=== PATIENT | female | born 1940 | race Caucasian/White ===

== ENCOUNTER 2017-05-21 15:42 | Emergency (ER) | payer MEDICARE ==
[2017-05-21 16:11] VITALS: O2SAT 100
[2017-05-21] MEDS ORDERED: Sodium Chloride 0.9% 1000 ML 1,000 ML ONE (16:38)
[2017-05-21] MEDS ORDERED: Sodium Chloride 0.9% 1000 ML 1,000 ML IV SCH (16:45)
--- NOTE | 2017-05-21 16:58 | ERPHSYRPT ---
- History of Present Illness Time Seen by Provider: 05/21/17 16:20 Source: patient Exam Limitations: clinical condition Patient Subjective Stated Complaint: pt reports black and yellow stool beginning francois 4 days ago-denies pain-denies vomiting-denies obvious blood Triage Nursing Assessment: pt alert and oriented-abd soft and nontender to palp- resp nonlabored Physician History: PATIENT WITH A HISTORY OF LIVER TRANSPLANT 2004, RENAL INSUFFIENCY, AND ANEMIA, HAS BEEN TREATED FOR A URINARY TRACT INFECTION ON 3RD ANTIBIOTIC, LEVAQUIN, KEFLEX AND RECENTLY PLACED ON XIFACIN 550MG TWICE DAILY. PATIENT COMPLAINS OF BLACK DIARRHEA STOOL FOR PAST WEEK. DENIES ABDOMINAL PAIN, FEVER OR URINARY SYMPTOMS. Timing/Duration: week(s) Severity: mild Modifying Factors: Improves With: nothing Associated Symptoms: other (BLACK DIARRHEA STOOL) Allergies/Adverse Reactions: ramipril [From AltDexetra] Allergy (Mild, Verified 05/21/17 16:15) Home Medications: Allopurinol [Allopurinol] 100 mg PO DAILY 05/21/17 [History] Amlodipine Besylate [Amlodipine Besylate] 10 mg PO DAILY 05/21/17 [History] Calcitriol 0.5 mcg PO DAILY 05/21/17 [History] Lactobacillus Acidophilus [Acidophilus TABLET] 1 tab PO DAILY 05/21/17 [ History] Levothyroxine Sodium [Synthroid] 175 mcg PO DAILY 05/21/17 [History] Lipase/Protease/Amylase [Pancrelipase 5,000 Dr Capsule] 1 each PO TID 05/21/17 [ History] Lisinopril 20 mg [Zestril 20 MG] 20 mg PO DAILY 05/21/17 [History] Metolazone 2.5 mg [Zaroxolyn 2.5 MG] 2.5 mg PO DAILY 05/21/17 [History] Primidone 50 MG [Mysoline 50Mg] 50 mg PO DAILY 05/21/17 [History] Rifaximin [Xifaxan] 550 mg PO DAILY 05/21/17 [History] Sertraline HCl [Zoloft] 100 mg PO DAILY 05/21/17 [History] Sodium Bicarbonate 650 mg PO DAILY 05/21/17 [History] Tacrolimus [Tacrolimus] 1 mg PO BID 05/21/17 [History] Hx Tetanus, Diphtheria Vaccination/Date Given: No Hx Influenza Vaccination/Date Given: Yes Hx Pneumococcal Vaccination/Date Given: No Immunizations Up to Date: Yes - Review of Systems Constitutional: No Fever, No Chills Eyes: No Symptoms Ears, Nose, & Throat: No Symptoms Respiratory: No Cough, No Dyspnea Cardiac: No Chest Pain, No Edema, No Syncope Abdominal/Gastrointestinal: Diarrhea, No Abdominal Pain, No Nausea, No Vomiting Genitourinary Symptoms: No Symptoms, No Dysuria Musculoskeletal: No Symptoms, No Back Pain, No Neck Pain Skin: No Rash Neurological: No Dizziness, No Focal Weakness, No Sensory Changes Psychological: No Symptoms Endocrine: No Symptoms All Other Systems: Reviewed and Negative - Past Medical History Pertinent Past Medical History: Yes Cardiac History: Hypertension Endocrine Medical History: Diabetes Type II, Hypothyroidism Other Medical History: tremors - Past Surgical History Past Surgical History: Yes Gastrointestinal: Liver Transplant - Social History Smoking Status: Never smoker Exposure to second hand smoke: No Drug Use: none Patient Lives Alone: No - Female History Hx Now: No - Nursing Vital Signs Nursing Vital Signs: Initial Vital Signs Temperature 98.1 F 05/21/17 16:05 Pulse Rate 63 05/21/17 16:05 Respiratory Rate 18 05/21/17 16:05 Blood Pressure 171/74 05/21/17 16:05 O2 Sat by Pulse Oximetry 100 05/21/17 16:05 Pain Scale Pain Intensity 0 - Physical Exam General Appearance: no apparent distress, alert Eye Exam: PERRL/EOMI, eyes nml inspection Ears, Nose, Throat Exam: normal ENT inspection, TMs normal, pharynx normal, moist mucous membranes Neck Exam: normal inspection, non-tender, supple, full range of motion Respiratory Exam: normal breath sounds, lungs clear, No respiratory distress Cardiovascular Exam: regular rate/rhythm, normal heart sounds, normal peripheral pulses Gastrointestinal/Abdomen Exam: soft, normal bowel sounds, other (NONTENDER), No tenderness, No mass Rectal Exam: normal exam (NO BLOOD NOTED), hemorrhoids Back Exam: normal inspection, normal range of motion, No CVA tenderness, No vertebral tenderness Extremity Exam: normal inspection, normal range of motion, pelvis stable Neurologic Exam: alert, oriented x 3, cooperative, normal mood/affect, nml cerebellar function, nml station & gait, sensation nml, No motor deficits Skin Exam: normal color, warm, dry, No rash Lymphatic Exam: No adenopathy SpO2 Interpretation: normal SpO2: 100 Oxygen Delivery: Room Air Ordered Tests: Active Orders 24 hr Category Date Time Status IV Insertion STAT Care 05/21/17 16:34 Active CBC W DIFF Stat Lab 05/21/17 16:55 Completed CMP Stat Lab 05/21/17 16:55 Completed Occult Blood,Stool Other Stat Lab 05/21/17 16:55 Completed UA W/ MICROSCOPIC Stat Lab 05/21/17 18:05 Completed Medication Summary Generic Name Dose Route Start Last Admin Trade Name Jimboq PRN Reason Stop Dose Admin Sodium Chloride 1,000 mls @ 50 mls/hr 05/21/17 16:45 05/21/17 16:41 Sodium Chloride 0.9% 1000 Ml IV 06/20/17 16:44 50 mls/hr .Q20H CHIP Administration Lab/Rad Data: Laboratory Result Diagrams 05/21/17 16:55 05/21/17 16:55 Laboratory Results 05/21/17 05/21/17 05/21/17 Range/Units 18:05 16:55 16:55 WBC (4.0-10.5) K/mm3 RBC (4.1-5.4) M/mm3 Hgb (12.0-16.0) gm/dl Hct (35-47) % MCV (78-100) fl MCH (26-32) pg MCHC (32-36) g/dl RDW (11.5-14.0) % Plt Count (150-450) K/mm3 MPV (6-9.5) fl Gran % (36.0-66.0) % Lymphocytes % (24.0-44.0) % Monocytes % (0.0-12.0) % Eosinophils % (0.00-5.0) % Basophils % (0.0-0.4) % Basophils # (0-0.4) Sodium 144 (136-145) mEq/L Potassium 5.0 (3.5-5.1) mEq/L Chloride 110 H (98-107) mEq/L Carbon Dioxide 20.5 L (21-32) mEq/L Anion Gap 18.5 H (5-15) MEQ/L BUN 69 H (9-20) mg/dL Creatinine 3.91 H (0.55-1.30) mg/dl Estimated GFR 12 ML/MIN Glucose 143 H (70-110) MG/DL Calcium 8.7 (8.5-10.1) mg/dL Total Bilirubin 0.40 (0.2-1.0) mg/dL AST 20 (15-37) U/L ALT 23 (12-78) U/L Alkaline Phosphatase 100 (46-116) U/L Serum Total Protein 7.0 (6.4-8.2) gm/dL Albumin 3.4 (3.4-5.0) g/dL Ur Collection Type CCMS Urine Color YELLOW (YELLOW) Urine Appearance CLEAR (CLEAR) Urine pH 5.0 (5-6) Ur Specific [place] 1.010 (1.005-1.025) Urine Protein NEGATIVE (Negative) Urine Ketones NEGATIVE (NEGATIVE) Urine Blood NEGATIVE (0-5) Dg/ul Urine Nitrite NEGATIVE (NEGATIVE) Urine Bilirubin NEGATIVE (NEGATIVE) Urine Urobilinogen NORMAL (0-1) mg/dL Ur Leukocyte Esterase TRACE (NEGATIVE) Urine Microscopic WBC 2-5 (0-5) /HPF Ur Epithelial Cells FEW (FEW) /HPF Urine Bacteria RARE (NEGATIVE) /HPF Urine Culture Reflexed NO (NO) Urine Glucose NEGATIVE (NEGATIVE) mg/dL Stool Occult Blood NEGATIVE (Negative) Specimen Received 05-21-17 1850 05/21/17 Range/Units 16:55 WBC 5.3 (4.0-10.5) K/mm3 RBC 2.85 L (4.1-5.4) M/mm3 Hgb 9.1 L (12.0-16.0) gm/dl Hct 28.9 L (35-47) % MCV 101.4 H (78-100) fl MCH 31.9 (26-32) pg MCHC 31.5 L (32-36) g/dl RDW 14.9 H (11.5-14.0) % Plt Count 174 (150-450) K/mm3 MPV 9.4 (6-9.5) fl Gran % 59.9 (36.0-66.0) % Lymphocytes % 24.8 (24.0-44.0) % Monocytes % 10.7 (0.0-12.0) % Eosinophils % 2.9 (0.00-5.0) % Basophils % 1.7 (0.0-0.4) % Basophils # 0.09 (0-0.4) Sodium (136-145) mEq/L Potassium (3.5-5.1) mEq/L Chloride (98-107) mEq/L Carbon Dioxide (21-32) mEq/L Anion Gap (5-15) MEQ/L BUN (9-20) mg/dL Creatinine (0.55-1.30) mg/dl Estimated GFR ML/MIN Glucose (70-110) MG/DL Calcium (8.5-10.1) mg/dL Total Bilirubin (0.2-1.0) mg/dL AST (15-37) U/L ALT (12-78) U/L Alkaline Phosphatase (46-116) U/L Serum Total Protein (6.4-8.2) gm/dL Albumin (3.4-5.0) g/dL Ur Collection Type Urine Color (YELLOW) Urine Appearance (CLEAR) Urine pH (5-6) Ur Specific [place] (1.005-1.025) Urine Protein (Negative) Urine Ketones (NEGATIVE) Urine Blood (0-5) Dg/ul Urine Nitrite (NEGATIVE) Urine Bilirubin (NEGATIVE) Urine Urobilinogen (0-1) mg/dL Ur Leukocyte Esterase (NEGATIVE) Urine Microscopic WBC (0-5) /HPF Ur Epithelial Cells (FEW) /HPF Urine Bacteria (NEGATIVE) /HPF Urine Culture Reflexed (NO) Urine Glucose (NEGATIVE) mg/dL Stool Occult Blood (Negative) Specimen Received - Progress Progress Note: 05/21/17 18:27 HEME NEGATIVE STOOL, UNABLE TO EVALUATE FOR C-DIFF WITHOUT STOOL SPECIMEN Counseled pt/family regarding: lab results, diagnosis, need for follow-up - Departure Time of Disposition: 19:20 Departure Disposition: Home Clinical Impression: ACUTE DIARRHEA Condition: Stable Critical Care Time: No Referrals: SIMÓN MURDOCK MD [Primary Care Provider] - Additional Instructions: CONTINUE ALL CURRENT MEDICATIONS. RETURN TO [facility] TO LAB FOR EVALUATION OF CLOSTRIDIUM DIFFICLE, OVA, PARASITES AND STOOL CULTURE. CONSULT YOUR PRIMARY CARE PROVIDER FOR FOLLOWUP.
[2017-05-21 17:08] LABS: BASOPHIL % 1.7 % (0.0-0.4); Basophil (Absolute #) 0.09 (0-0.4); Eosinophil % 2.9 % (0.00-5.0); Eosinophil (Absolute #) 0.15 (0-0.5); Granulocyte Absolute (ANC) 3.15 (1.4-6.9); Granulocytes % 59.9 % (36.0-66.0); Hematocrit 28.9 % (35-47); Hemoglobin 9.1 gm/dl (12.0-16.0); Lymphocytes % 24.8 % (24.0-44.0); Mean Cell Volume 101.4 fl (78-100); Mean Corpuscular Hemoglobin 31.9 pg (26-32); Mean Corpuscular Hgb Concent. 31.5 g/dl (32-36); Mean Platelet Volume 9.4 fl (6-9.5); Monocyte (Absolute #) 0.56 (0.0-1.3); Monocytes % 10.7 % (0.0-12.0); Platelet Count 174 K/mm3 (150-450); Red Blood Count 2.85 M/mm3 (4.1-5.4); Red Cell Distribution Width 14.9 % (11.5-14.0); White Blood Count 5.3 K/mm3 (4.0-10.5)
[2017-05-21 17:55] LABS: ALBUMIN 3.4 g/dL (3.4-5.0); ANION GAP 18.5 MEQ/L (5-15); BILIRUBIN,TOTAL 0.4 mg/dL (0.2-1.0); Calcium 8.7 mg/dL (8.5-10.1); Carbon Dioxide 20.5 mEq/L (21-32); Creatinine 1 3.91 mg/dl (0.55-1.30)
[2017-05-21 18:51] VITALS: BP 182/85; PULSE 62
[2017-05-21 19:02] LABS: Appearance CLEAR (CLEAR); Bilirubin NEGATIVE (NEGATIVE); Blood NEGATIVE Ery/ul (0-5); Glucose NEGATIVE (NEGATIVE); Ketones NEGATIVE (NEGATIVE); Leukocyte Esterase TRACE (NEGATIVE); Nitrite NEGATIVE (NEGATIVE); Protein,Urine Dip NEGATIVE (Negative); Urobilinogen NORMAL mg/dL (0-1)
[2017-05-21 19:03] LABS: Bacteria RARE /HPF (NEGATIVE); Epithelial Cells FEW /HPF (FEW)
== END 2017-05-21 20:01 | disposition home or self-care (01) ==
LOC: ED 15:42
DX: R19.7 Diarrhea, unspecified (principal); Z79.899 Other long term (current) drug therapy; Z94.4 Liver transplant status
CPT/HCPCS: 36000; 36415; 80053; 81000; 82272; 85025; 96360; 96361; 99284